=== PATIENT | male | born 1940 | race Caucasian/White ===

== ENCOUNTER 2016-09-02 05:37 | Outpatient (CLI) | payer MEDICARE, BC ==
[~2016-09-02] VITALS: Ht 175.3 cm; Wt 81.8 kg
[~2016-09-02 05:37] MED LIST: AMBIEN10 MG; ASPIRIN EC81 MG PO; ASPIRIN325 MG PO; AVODART0.5 MG PO; AZOR 5-40MG; BACTRIM DS TABL1 TAB PO; BYSTOLIC5 MG PO; CORDARONE200 MG PO; FELDENE20 MG PO; FISH OIL 1,0001 CA1; FISH OIL 1,2001 CA1 PO; FLOMAX0.4 MG PO; MULTI-DAY VITAM1 TAB PO; NORVASC5 MG PO; PROSCAR5 MG PO; VICODIN 5/500 T1 TAB
[2016-09-02 06:27] LABS: BASOPHILS 2.6 % (0.0-2.0); EOSINOPHILS 8.1 % (0-7); HEMATOCRIT 29.7 % (42.0-54.0); HEMOGLOBIN 10.1 g/dL (13.5-17.5); IMMATURE GRANULOCYTES 0.4 % (0-5); LYMPHOCYTES 23.8 % (15-50); MCH 35.4 pg (26.0-34.0); MCV 104.2 fL (80.0-100.0); MEAN PLATELET VOLUME 10.4 fL (7.4-10.4); MONOCYTES 9.9 % (2-11); NEUTROPHILS 55.2 % (40-80); RBC 2.85 10x6/uL (4.20-6.10); RDW 18.3 % (11.5-14.5); WBC 4.5 10x3/uL (4.8-10.8)
[2016-09-02 06:30] LABS: ANION GAP 11.9 mmol/L (8-16); CALCIUM 8.9 mg/dL (8.5-10.1); CREATININE - SERUM 1.2 mg/dL (0.6-1.3); PLATELET COUNT 161 10x3/uL (130-400); POTASSIUM - SERUM 3.9 mmol/L (3.5-5.1)
[2016-09-02] MEDS ORDERED: LYRICA75 MG PO (06:36)
[2016-09-02 06:38] LABS: APTT 31.7 SECONDS (22.8-39.4); INR 1.12 (0.85-1.17); PROTIME 14.2 SECONDS (11.6-15.0)
[2016-09-02 07:00] VITALS: BP 131/64; Ht 175.3 cm; Wt 81.8 kg
--- NOTE | 2016-09-02 08:44 | NUR ---
0840 V/S MONITOR ATTACHED AND V/S RECORDED ON FLOWSHEET; TOLERATED WATER
--- NOTE | 2016-09-02 10:42 | NUR ---
1083 DISCHARGE INSTRUCTIONS REVIEWED WITH PATIENT; VERBALIZED UNDERSTANDING
== END 2016-09-02 10:40 | disposition home or self-care (01) ==
LOC: D.OPS 05:37 → D.CT 08:00 → D.OPS 08:00
PROVIDERS: Specialist
DX: D64.9 Anemia, unspecified (principal)

== ENCOUNTER → 2017-03-17 13:30 | Outpatient (CLI) | payer MEDICARE, BC ==
[2016-09-02 07:00] VITALS: BMI 26.6
[~2017-03-17 13:30] MED LIST changes: +LYRICA75 MG PO
== END | disposition home or self-care (01) ==
LOC: D.RT 03-14 08:00 → D.CT 03-14 09:30 → D.RT 13:30
DX: J84.9 Interstitial pulmonary disease, unspecified (principal)

== ENCOUNTER 2017-05-05 10:54 | Outpatient (CLI) | payer MEDICARE, BC ==
--- NOTE | ~2017-05-05 | HEMODYNAMI ---
PATIENT:WASHINGTON GARLAND MEDICAL RECORD: [id number] : 38 LOCATION:[facility] ADMISSION DATE: 05/05/17 Generatedon:05/05/201714:48 Patient name: WASHINGTON GARLAND Patient #: [id number] SSN: : 1940 Date of study: 05/05/2017 Page: Of Hemodynamic Procedure Report Patient Data Patient Demographics Procedure consent was obtained First Name: WASHINGTON Gender: Male Last Name: GILL : 1940 Patient #: [id number] Age: 76 year(s) Race: Unknown Additional ID: [id number] Contact details [address]: [address] [place] [address] State: [place] City: [place] Zip code: [address] Past Medical History History of disease Date Diagnosis Comments CAD Allergies Allergen Reaction Date Comments Reported Other allergy 05/06/2016 metoprolol Other allergy 05/06/2016 Metoprolol, Sulfa Sulfa drugs 05/05/2017 Other allergy 05/05/2017 metoprolol Admission Admission Data Admission Date: 05/05/2017 Admission Time: 10:54 Procedure Procedure Types Cath Procedure Diagnostic Procedure Right Heart Right Heart Cath Miscellaneous Procedures Moderate Sedation up to 30 minutes Procedure Description Procedure Date Procedure Date: 05/05/2017 Procedure Start Time: 14:20 Procedure End Time: 14:44 Procedure Staff Name Function Feliciano Figueroa MD Performing Physician Raymundo Matthews RN Nurse Zachary Reyes RT Monitor Roula Siegel RT Monitor Sarkis Woods RT Scrub Baljinder Aden RN Tunnel Elastic Operator Lockstitch Procedure Data Cath Procedure Fluoroscopy Diagnostic fluoroscopy Total fluoroscopy Time: 5.6 time: 5.6 min min Diagnostic fluoroscopy Total fluoroscopy dose: 174 dose: 174 mGy mGy Contrast Material Contrast Material Type Amount (ml) Isovue 300 0 Entry Location Entry Primary Successful Side Size Upsize Upsize Entry Closure Marquez ccessful Closure Location (Fr) 1 (Fr) 2 (Fr) Remarks Device Remarks Femoral Right 7 Fr Manual vein Short Compression Estimated blood loss: 10 ml Diagnostic catheters Device Type Used For End Catheter Placement Lees Cloudabilityciences 7Fr Procedure [place] Thermodilution jamilah Procedure Complications No complications Procedure Medications Medication Administration Route Dosage 0.9% NaCl I.V. 100 ml/hr Oxygen NC 2 l/min Heparin Flush Bag added to field 2 bags (1000units/500ml NS) Lidocaine 2% added to field 20 Versed I.V. 0.5 mg Fentanyl I.V. 50 mcg Versed I.V. 0.5 mg Hemodynamics Rest Heart Rate: 71 (bpm) Oxygen Saturations Time Location Saturations Hgb (g/dl) O2 Content Use (%) (ml/L) 14:30 PA 74.7 14:31 RV 72.8 14:33 RA 75.1 Pressure Samples Time Site Value (mmHg) Purpose Heart Use Rate(bpm) 14:27 PA 35/11(20) Snapshot 72 14:28 PCW 15/19(14) Snapshot 75 14:31 RV 34/-1,4 Snapshot 73 14:32 RA 7/8(4) Snapshot 69 Snapshots Pre Cath Intra NCS Post Cath Vital Signs Time Heart Resp SPO2 etCO2 EQ6sbtw NIBP (mmHg) Rhythm Pain Sedation Rate (ipm) (%) (mmHg) (mmHg) Status Level (bpm) 14:07:42 72 16 100 0 0 140/82(120) NSR 0 (11) 10(A) , No pain 14:12:25 69 15 98 0 0 133/68(107) NSR 0 (11) 10(A) , No pain 14:17:09 69 15 98 0 0 137/66(102) NSR 0 (11) 10(A) , No pain 14:21:50 71 16 100 0 0 137/74(115) NSR 0 (11) 10(A) , No pain 14:26:30 80 17 98 0 0 137/87(103) NSR 0 (11) 10(A) , No pain 14:31:11 71 16 98 0 0 127/77(102) NSR 0 (11) 10(A) , No pain 14:35:56 69 14 99 0 0 125/58(106) NSR 0 (11) 10(A) , No pain 14:40:38 68 17 99 0 0 129/69(107) NSR 0 (11) 10(A) , No pain Medications Time Medication Route Dose Verified Delivered Reason Notes Effe ctiveness by by 14:09:00 0.9% NaCl I.V. 100 Raymundo Raymundo Per ml/hr Byron Matthews physician RN RN 14:09:17 Oxygen NC 2 Raymundo Raymundo Per l/min Byron Matthews physician RN RN 14:09:33 Heparin Flush added 2 Raymundo Raymundo used for Bag to bags Lorigan Byron procedure (1000units/500ml field RN RN NS) 14:09:49 Lidocaine 2% added 20ml Raymundo Raymundo for local to vial Lorigan Lorigan anesthetic field RN RN 14:16:23 Versed I.V. 0.5 Raymundo Raymundo for mg Lorigan Lorigan sedation RN RN 14:16:39 Fentanyl I.V. 50 Raymundo Raymundo for mcg Lorigan Lorigan sedation RN RN 14:20:20 Versed I.V. 0.5 Raymundo Raymundo for mg Lorigan Lorigan sedation RN boilermaker industrial boilers Log Time Note 13:45:20 Baljinder Aden RN sent for patient. Start room use. 13:56:36 Time tracking: Regular hours 13:56:44 Plan of Care:Hemodynamics will remain stable., Cardiac rhythm will remain stable., Comfort level will be maintained., Respiratory function will remain adequate., Patient/ family verbilizes understanding of procedure., Procedure tolerated without complication., Recovers from procedure without complications.. 13:57:31 Patient received from Pre/Post Procedure Room to CCL 1 Alert and oriented. Tansferred to table in Supine position. 13:57:33 Warm blankets applied, and kaylynn hugger turned on for patient comfort. 13:57:35 Correct patient and procedure confirmed by team. 13:57:37 Signed procedure consent form obtained from patient. 13:57:38 ECG and BP/O2 sat monitors applied to patient. 14:06:47 Vital chart was started 14:06:54 Baseline sample Acquired. 14:06:54 Baseline sample Acquired. 14:07:02 Rhythm: sinus rhythm 14:07:07 Full Disclosure recording started 14:07:30 H&P Date Dictated: 04/30/2017 Within 30 days and on chart., H&P Addendum completed by physician on day of procedure. (MUST COMPLETE FOR ALL OUTPATIENTS). 14:07:39 Pre-procedure instructions explained to patient. 14:07:41 Pre-op teaching completed and patient verbalized understanding. 14:07:50 Family in patients room. 14:07:53 Patient NPO since Midnight. 14:08:27 Patient allergic to Sulfa drugs 14:09:00 0.9% NaCl 100 ml/hr I.V. was administered by Raymundo Matthews RN; Per physician; 14:09:17 Oxygen 2 l/min NC was administered by Raymundo Matthews RN; Per physician; 14:09:21 Patient allergic to Other allergymetoprolol 14:09:25 Is the patient allergic to Iodine/contrast media? No. 14:09:28 Is patient on blood thinner?No 14:09:32 Patient diabetic? No. 14:09:33 Heparin Flush Bag (1000units/500ml NS) 2 bags added to field was administered by Raymundo Matthews RN; used for procedure; 14:09:38 Snore? Yes 14:09:40 Sleep apnea? No 14:09:41 Deviated septum? No 14:09:43 Opens mouth fully? Yes 14:09:44 Sticks out tongue? Yes 14:09:49 Lidocaine 2% 20ml vial added to field was administered by Raymundo Matthews RN; for local anesthetic; 14:10:00 Dentures? Yes in tight 14:10:10 Pre procedure: right dorsailis pedis pulse 1+ Palpable, but thready & weak; easily obliterated 14:12:04 Patient pain scale 0/10 ?. 14:12:26 IV patent on arrival in left forearm with 0.9% NaCl at [facility]. 14:12:45 Right groin area was prepped with chlora-prep and draped in sterile fashion 14:12:55 Alarms reviewed by R. N. 14:12:56 Sharps counted by scrub and verified by R.N. 14:13:19 Previous problem with sedation/anesthesia? No ? 14:13:21 Airway obstruction? No ? 14:13:28 Lab results completed and on chart. 14:13:31 --------ALL STOP TIME OUT------ 14:13:31 Final Timeout: patient, procedure, and site verified with staff and physician. All members of the team are in agreement. 14:13:41 Right groin site verified by team. 14:13:44 Physical assessment completed. ASA score P 2 - A patient with mild systemic disease as per Feliciano Figueroa MD. 14:13:47 Sedation plan: IV Moderate Sedation Versed, Fentanyl 14:16:10 Zero performed for pressure channel P1 14:16:15 Zero performed for pressure channel P1 14:16:23 Versed 0.5 mg I.V. was administered by Raymundo Matthews RN; for sedation; 14:16:39 Fentanyl 50 mcg I.V. was administered by Raymundo Matthews RN; for sedation; 14:16:46 Tegaderm 4 x 4 opened to sterile field. 14:16:47 Acist Hand Control opened to sterile field. 14:16:47 Acist Manifold opened to sterile field. 14:16:49 Acist Syringe opened to sterile field. 14:16:50 Bag Decanter opened to sterile field. 14:16:51 Medline Cath Pack opened to sterile field. 14:17:16 Terumo 7Fr [place]lin Sheath opened to sterile field. 14:20:04 Procedure started. 14:20:16 Local anesthetic to right femoral vein with Lidocaine 2% by Feliciano Figueroa MD.INITIAL ACCESS ONLY 14:20:20 Versed 0.5 mg I.V. was administered by Raymundo Matthews RN; for sedation; 14:22:36 A 7 Fr Short sheath was inserted into the Right Femoral vein 14:22:43 A C7 Group 7Fr [place] Thermodilution jamilah was advanced over the wire and used for Procedure. 14:25:00 St Ramón 150cm J .025 wire opened to sterile field. 14:25:20 WIRE USED TO ADVANCE SWAN 14:30:24 PA saturation: 74.7% 14:31:42 RV saturation: 72.8% 14:33:16 RA saturation: 75.1% 14:40:24 Catheter removed. 14:40:48 Sheath removed intact; hemostasis achieved with Manual Compression to the Right Femoral vein. 14:40:52 Procedure ended.(Physican Out) 14:41:09 Fluoroscopy time 05.60 minutes. 14:41:19 Fluoroscopy dose: 174 mGy 14:41:19 Flurop Dose total: 174 14:41:26 Contrast amount:Isovue 300 0ml. 14:41:28 Sharps counted by scrub and verified by R.N. 14:41:30 Insertion/operative site no bleeding no hematoma. 14:41:42 Post-op/insertion site Right Femoral vein dressed using a 4 x 4 and Tegaderm. 14:41:52 Post Procedure Pulses reassessed and unchanged 14:42:04 Post-procedure physical assessment completed. ASA score P 2 - A patient with mild systemic disease as per Feliciano Figueroa MD. 14:42:10 Post procedure rhythm: unchanged. 14:42:14 Estimated blood loss: 10 ml 14:42:17 Post procedure instruction explained to patient.Patient verbalizes understanding. 14:42:20 Patient needs reinforcement of post procedure teaching. 14:42:51 Procedure type changed to Cath procedure, Diagnostic procedure, Right Heart, Right Heart Cath, Miscellaneous Procedures, Moderate Sedation up to 30 minutes 14:44:04 Procedure and supply charges have been captured, reviewed, submitted and are correct. 14:44:17 Procedure Complication : No complications 14:44:22 Vital chart was stopped 14:44:25 See physician's report for complete and final results. 14:44:33 Report given to Pre/Post Procedure Room. 14:44:37 Patient transfered to Pre/Post Procedure Room with Stretcher. 14:44:43 Procedure ended. 14:44:43 Full Disclosure recording stopped 14:45:11 End room use (Document Last) Device Usage Item Name Manufacture Quantity Catalog Hospital Part Current Minima l Lot# / Number Charge Number Stock Stock Serial# Code Tegaderm 4 x 4 3M 1 [id number] [id number] [id number] 5 Acist Hand Acist 1 50124 792421 979667 [id number] 5 Control Medical Systems Inc Acist Manifold Acist 1 75904 663881 401659 026399 5 Medical Systems Inc Acist Syringe Acist 1 55683 242660 826599 788622 20 Medical Systems Inc Bag Decanter Microtek 1 2002S 552569 50106 818900 5 Medical Inc. Medline Cath Cardinal 1 [id number] 121554 90923 138918 5 POSLavu Health Terumo 7Fr Terumo 1 [id number] 602262 852981 792931 5 Sutherlin Sheath Lees Lees 1 [id number] 6253225 40903 958147 3 Lifesciences Lifesciences 7Fr [place] Thermodilution jamilah [address] Ram[address] St Ramón 1 353304 166654 659030 610611 2 J .025 wire Signature Audit Wells Stage Time Signature Unsigned Intra-Procedure 05/05/2017 Roula Siegel 2:48:19 PM RT(R) Signatures Monitor : Zachary Reyes RT Signature : Date : Time : Monitor : Roula Siegel Signature : RT Date : Time : [address] [place] [address]
[2017-05-05] MEDS ORDERED: VIAGRA25 MG PO (11:11)
[2017-05-05 11:19] VITALS: BP 157/70; BMI 26.5
[2017-05-05 11:48] LABS: EOSINOPHILS 1.2 % (0-7); HEMATOCRIT 36.7 % (42.0-54.0); HEMOGLOBIN 12.5 g/dL (13.5-17.5); IMMATURE GRANULOCYTES 0.4 % (0-5); LYMPHOCYTES 18.4 % (15-50); MCH 33.8 pg (26.0-34.0); MCHC 34.1 g/dL (31.0-37.0); MCV 99.2 fL (80.0-100.0); MONOCYTES 6.4 % (2-11); NEUTROPHILS 72.6 % (40-80); RDW 26.2 % (11.5-14.5); WBC 7.7 10x3/uL (4.8-10.8)
[2017-05-05 11:50] LABS: PLATELET COUNT 262 10x3/uL (130-400)
[2017-05-05 11:59] LABS: ANION GAP 14.4 mmol/L (8-16); CALCIUM 9.3 mg/dL (8.5-10.1); CARBON DIOXIDE 23.1 mmol/L (21.0-32.0); CREATININE - SERUM 1.3 mg/dL (0.6-1.3); POTASSIUM - SERUM 4.5 mmol/L (3.5-5.1)
--- NOTE | 2017-05-05 15:00 | NUR ---
1500 RECEIVED PT FROM CARAMEL MAKER. PT IS ALERT, DENIES ANY C/O. DRESSING TO RIGHT GROIN IS CDI, AREA SOFT AND NONTENDER. VSS. AT BEDSIDE, CALL LIGHT IN REACH.
--- NOTE | 2017-05-05 15:30 | NUR ---
1515 PT DENIES ANY C/O. VSS. RIGHT GROIN DRESSING IS CDI. AT BEDSIDE. CALL LIGHT IN REACH.
--- NOTE | 2017-05-05 15:30 | NUR ---
1530 PT HEIDI PO FLUIDS WITH NO C/O NAUSEA. DRESSING TO RIGHT GROIN IS CDI, AREA IS SOFT AND NONTENDER. PT DENIES ANY C/O.
--- NOTE | 2017-05-05 16:43 | NUR ---
1640 HOB ELEVATED 45 DEGREES, SANDWICH SERVED. PT DENIES ANY C/O CHEST DISCOMFORT OR NAUSEA. DRESSING TO RIGHT GROIN IS CDI, AREA IS SOFT AND NONTENDER. DC INSTRUCTIONS HAVE BEEN REVIEWED WITH PT AND WHO VERBALIZE UNDERSTANDING.
--- NOTE | 2017-05-05 16:59 | NUR ---
1700 PT HAS TOLERATED SANDWICH WITH NO C/O NAUSEA. DRESSING TO RIGHT GROIN IS STABLE WITH NO BLEEDING OR HEMATOMA NOTED. IV DC'D WITH CATH INTACT. PT DRESSING FOR DC TO HOME.
--- NOTE | 2017-05-05 17:11 | NUR ---
1710 ASSISTED PT TO THE BATHROOM AND PT VOIDED QS. RIGHT GROIN REMAINS STABLE WITH NO BLEEDING OR HEMATOMA NOTED. PT ESCORTED TO PRIVATE AUTO VIA WC WTIH DRIVING HIM HOME.
== END 2017-05-05 17:10 | disposition home or self-care (01) ==
LOC: D.CATH 10:54
PROVIDERS: Internal Medicine Cardiovascular Disease
DX: I25.10 Atherosclerotic heart disease of native coronary artery without angina pectoris (principal); I35.0 Nonrheumatic aortic (valve) stenosis; Z87.891 Personal history of nicotine dependence; I10 Essential (primary) hypertension; G47.33 Obstructive sleep apnea (adult) (pediatric); Z01.812 Encounter for preprocedural laboratory examination

== ENCOUNTER 2019-05-03 16:25 | Inpatient (IN) | payer MEDICARE, BC ==
[~2019-05-03] VITALS: Ht 172.7 cm; Wt 80.9 kg
[2019-05-03 16:00] VITALS: BP 130/68
[~2019-05-03 16:25] MED LIST changes: -AMBIEN10 MG; +AMBIEN10 MG PO; +VIAGRA25 MG PO
[2019-05-03] MEDS ORDERED: HYDROCODON-ACE1 EA10 PO (16:47)
[2019-05-03 16:51] VITALS: BP 130/68; Ht 172.7 cm; Wt 80.9 kg
[2019-05-03 17:40] LABS: BASOPHILS 0.6 % (0-2); EOSINOPHILS 0.8 % (0-7); HEMATOCRIT 32.1 % (42.0-54.0); HEMOGLOBIN 10.6 g/dL (13.5-17.5); IMMATURE GRANULOCYTES 0.6 % (0-5); LYMPHOCYTES 8.9 % (15-50); MCH 34.6 pg (26.0-34.0); MCV 104.9 fL (80.0-100.0); MONOCYTES 8.5 % (2-11); NEUTROPHILS 80.6 % (40-80); RBC 3.06 10x6/uL (4.20-6.10); RDW 26.4 % (11.5-14.5); WBC 10.4 10x3/uL (4.8-10.8)
[2019-05-03 18:03] LABS: PLATELET COUNT 180 10x3/uL (130-400)
[2019-05-03 18:06] LABS: ALBUMIN 3.8 g/dL (3.4-5.0); ALKALINE PHOSPHATASE 47 U/L (46-116); ALT (SGPT) 66 U/L (10-68); BILIRUBIN - TOTAL 2.88 mg/dL (0.2-1.3); CALC OSMOLALITY 289 mosm/kg (275-300); CALCIUM 8.7 mg/dL (8.5-10.1); CARBON DIOXIDE 24.1 mmol/L (21.0-32.0); CHLORIDE - SERUM 104 mmol/L (98-107); CREATININE - SERUM 1.4 mg/dL (0.6-1.3); GLUCOSE 109 mg/dL (74-106); POTASSIUM - SERUM 4.2 mmol/L (3.5-5.1); PROTEIN - SERUM 6.9 g/dL (6.4-8.2); SODIUM 140 mmol/L (136-145); UREA NITROGEN 40 mg/dL (7-18); eGFR NON AFRICAN AMERICAN 52 mL/min (90-120)
[2019-05-03 18:20] LABS: CKMB 0.8 U/L (0.0-3.6); CREATINE KINASE 18 UL (21-232); PRO BNP 384 pg/mL (0-450); TROPONIN-I < 0.017 ng/mL (0.000-0.060)
--- NOTE | 2019-05-03 19:40 | NUR ---
PT SITTING UP IN BED ALERT AND ORIENTED X4. NO S/S OF DISTRESS. BED LOW CALL LIGHT WITHIN REACH. WILL CONTINUE TO MONITOR.
[2019-05-03 20:00] VITALS: BP 118/59
[2019-05-04] VITALS: BP 127/72
--- NOTE | 2019-05-04 04:00 | NUR ---
I have reviewed this patient and I concur with the Shift Assessment completed by the Licensed Practical Nurse today this shift.
[2019-05-04 04:34] VITALS: BP 111/67
[2019-05-04 06:24] LABS: APTT 38.8 SECONDS (22.8-39.4); INR 1.27 (0.85-1.17); PROTIME 15.4 SECONDS (11.6-15.0)
[2019-05-04 06:43] LABS: ANION GAP 11.3 mmol/L (8-16); CALCIUM 8.2 mg/dL (8.5-10.1); CREATININE - SERUM 1.4 mg/dL (0.6-1.3); MAGNESIUM - SERUM 1.9 mg/dL (1.8-2.4); PHOSPHOROUS 3.7 mg/dL (2.5-4.9); POTASSIUM - SERUM 4.3 mmol/L (3.5-5.1)
[2019-05-04 06:44] LABS: BASOPHILS 0.4 % (0-2); HEMATOCRIT 26.2 % (42.0-54.0); HEMOGLOBIN 8.7 g/dL (13.5-17.5); IMMATURE GRANULOCYTES 0.9 % (0-5); LYMPHOCYTES 18.6 % (15-50); MCH 34.8 pg (26.0-34.0); MCHC 33.2 g/dL (31.0-37.0); MCV 104.8 fL (80.0-100.0); MONOCYTES 10.5 % (2-11); NEUTROPHILS 66.6 % (40-80); RDW 26.2 % (11.5-14.5)
[2019-05-04 06:45] LABS: PLATELET COUNT 116 10x3/uL (130-400); WBC 4.7 10x3/uL (4.8-10.8)
[2019-05-04 08:00] VITALS: BP 115/64
[2019-05-04 12:00] VITALS: BP 104/54
[2019-05-04 13:06] LABS: % SATURATION 52 % (15-55); IRON 90 ug/dl (35-150); TOTAL IRON BIND CAPACITY 170 ug/dl (260-445); UNSAT IRON BIND CAPACITY 80 ug/dl (150-375)
--- NOTE | 2019-05-04 15:40 | NUR ---
URINE SPECIMEN COLLECTED AND TAKEN TO LAB FOR UA. WILL MONITOR.
[2019-05-04 16:07] VITALS: BP 124/82
[2019-05-04] MEDS ORDERED: LASIX40 MG PO (16:32)
--- NOTE | 2019-05-04 16:37 | NUR ---
OK TO DC PER CARDIOLOGY AND ONCOLOGY.
[2019-05-04 16:40] LABS: APPEARANCE CLEAR (CLEAR); BILIRUBIN NEGATIVE (NEGATIVE); COLOR YELLOW (YELLOW); GLUCOSE NEGATIVE (NEGATIVE); KETONE NEGATIVE (NEGATIVE); NITRITE NEGATIVE (NEGATIVE); PROTEIN NEGATIVE (NEGATIVE); UROBILINOGEN NORMAL (NORMAL)
--- NOTE | 2019-05-04 17:07 | NUR ---
PER HARIKA BLOOM RN PRIMARY NURSE, SHE STATES THAT PATIENT HAS HAD HIS FLU SHOT.
--- NOTE | 2019-05-04 17:29 | NUR ---
IV AND TELEMETRY DCD. DC PLANS GIVEN. UNDERSTANDING VOICED. ESCORTED TO CAR BY W/C.
--- NOTE | 2019-05-05 08:17 | MORECARE ---
CASE MANAGEMENT DISCHARGE SUMMARY PATIENT: WASHINGTON GARLAND UNIT: [id number] ADM DATE: 05/04/19 AGE: 78 : 39 SEX: M ROOM/BED: D.2128 AUTHOR: VA WONG PHYSICIAN: REFERRING PHYSICIAN: SOLIS LUNSFORD MD DATE OF SERVICE: 05/05/19 Discharge Plan Patient Name: WASHINGTON GARLAND Facility: [facility]:[place] : 1940 Planned Disposition: Home Anticipated Discharge Date: 05/04/19 Discharge Date: 05/04/2019 Expected LOS: 1 Initial Reviewer: [email or web address] Initial Review Date: 05/05/2019 Generated: 05/05/19 9:17 am Patient Name: WASHINGTON GARLAND Page [id number] at 0817 All edits/amendments must be made on the electronic document DICTATION DATE: 05/05/19816 BPM DEVELOPER: LAXMI 05/05/19816 RPT#: [id number] DC DATE:05/04/19 STATUS: DIS IN [facility] [address] [place] [place] [address] END OF REPORT
--- NOTE | 2019-05-06 13:56 | EC ---
PATIENT:WASHINGTON GARLAND DATE OF SERVICE: 05/04/19 SEX: M MEDICAL RECORD: [id number] DATE OF : [birth year] LOCATION:D. D.212 AGE OF PATIENT: 78 ADMISSION DATE: 05/04/19 REFERRING PHYSICIAN: INTERPRETING PHYSICIAN: NOMI LUNSFORD MD ECHOCARDIOGRAM REPORT ECHO CHARGES 4 ECHO COMPLETE Date: 05/04/19 CLINICAL DIAGNOSIS: BLE EDEMA, SOB,PALPIATIONS, HX CAD, AVR, MV REPAIR ECHOCARDIOGRAPHIC MEASUREMENTS (adult normal given) AC root (d.<3.7cm) 3.5 cm LV Septum d (<1.2 cm> 1.4 cm Valve Excursion 1.3 cm LV Septum (systole) 1.7 cm Left Atria (s.<4.0cm> 4.4 cm LVPW d(<1.2cm) 1.8 cm RV (d.<2.3cm) 3.8 cm LVPW (sytole) 1.9 cm LV diastole(<5.6CM) 6.2 cm MV E-F(>70mm/sec) cm LV systole 5.1 cm LVOT Diameter 2.6 cm MV exc.(>10mm) 2.1 cm Est.ejection fraction (50-75%) % DOPPLER: LVIT cm/sec A 114 cm/sec E 107 cm/sec LA cm/sec RVSP 13 mmHg LVOT 136 cm/sec AOP1/2T m/s Asc. Ao 210 cm/sec RVOT 81 cm/sec RA cm/sec PA 140 cm/sec AV Gradient Peak 17.70mmHg AV Mean 9.69 mmHg AV Area 2.6 cm MV Gradient Peak 7.93 mmHg MV Mean 3.88 mmHg MV Area cm COMMENTS: Boiling House Oiler: 2 WALT [employer] Supply Chain Vice President: 2 Dr. Figueroa TAPE# PACS Pericardial Effusion N DATE OF SERVICE: Adequate 2D, color flow imaging, spectral Doppler, and M-mode. LVH is present. No internal dimension is dilated at 6.2 cm. LV appears to be mildly globally hypo with EF lower limits of normal, mildly reduced at 45% to 50%. Tissue prosthetic aortic valve is noted with acceptable Doppler velocity and no significant AI. Left atrium dilated at 4.8 cm. Mitral valve repair is noted with acceptable Doppler velocity and no more than mild MR. Right-sided chambers are grossly normal. Mild TR. ECHOCARDIOGRAM REPORT [id number] WASHINGTON GARLAND TRANSINT:[id number] Voice Confirmation ID: [id number] DOCUMENT ID: [id number] NOMI LUNSFORD MD at 1356 CC: [id number] DICTATION DATE: 05/04/19 1608 DATA ENTRY: 05/05/19 0102 DIS IN 05/04/19 [place] [id number] [place] [id number]
== END 2019-05-04 17:30 | disposition home or self-care (01) | DRG 293 ==
LOC: D.M2 16:25 → OBSVTIME 16:25 → D.M2 05-04 15:08
PROVIDERS: Family Medicine; ADMIT Emergency Medicine; ATTEND Emergency Medicine
DX: I11.0 Hypertensive heart disease with heart failure (principal); I50.9 Heart failure, unspecified; D53.9 Nutritional anemia, unspecified; E80.6 Other disorders of bilirubin metabolism; I25.10 Atherosclerotic heart disease of native coronary artery without angina pectoris; J84.10 Pulmonary fibrosis, unspecified; M19.90 Unspecified osteoarthritis, unspecified site; D46.9 Myelodysplastic syndrome, unspecified; E83.119 Hemochromatosis, unspecified; R00.0 Tachycardia, unspecified; Z87.891 Personal history of nicotine dependence

== ENCOUNTER 2019-05-12 09:00 | Inpatient (IN) | payer MEDICARE, BC ==
[~2019-05-12] VITALS: Ht 172.7 cm; Wt 79.5 kg
[~2019-05-12 09:00] MED LIST changes: +HYDROCODON-ACE1 EA10 PO; +LASIX40 MG PO
[2019-05-12 09:46] VITALS: BP 98/58
[2019-05-12 10:01] LABS: ALBUMIN 3.9 g/dL (3.4-5.0); ALKALINE PHOSPHATASE 48 U/L (46-116); ALT (SGPT) 48 U/L (10-68); BILIRUBIN - TOTAL 2.87 mg/dL (0.2-1.3); CALC OSMOLALITY 295 mosm/kg (275-300); CALCIUM 8.8 mg/dL (8.5-10.1); CARBON DIOXIDE 27.3 mmol/L (21.0-32.0); CHLORIDE - SERUM 106 mmol/L (98-107); CREATININE - SERUM 1.4 mg/dL (0.6-1.3); GLUCOSE 114 mg/dL (74-106); POTASSIUM - SERUM 3.4 mmol/L (3.5-5.1); PROTEIN - SERUM 6.6 g/dL (6.4-8.2); SODIUM 147 mmol/L (136-145); UREA NITROGEN 22 mg/dL (7-18); eGFR NON AFRICAN AMERICAN 52 mL/min (90-120)
[2019-05-12 10:03] VITALS: BP 102/66
[2019-05-12 10:06] LABS: APTT 32.1 SECONDS (22.8-39.4); INR 1.1 (0.85-1.17); PROTIME 13.7 SECONDS (11.6-15.0)
[2019-05-12 10:08] LABS: HEMATOCRIT 32.9 % (42.0-54.0); HEMOGLOBIN 10.5 g/dL (13.5-17.5); MCH 33.2 pg (26.0-34.0); MCHC 31.9 g/dL (31.0-37.0); MCV 104.1 fL (80.0-100.0); RBC 3.16 10x6/uL (4.20-6.10); RDW 25.1 % (11.5-14.5); WBC 5.6 10x3/uL (4.8-10.8)
[2019-05-12 10:10] LABS: PLATELET COUNT 180 10x3/uL (130-400)
[2019-05-12 10:11] LABS: APPEARANCE CLEAR (CLEAR); BILIRUBIN NEGATIVE (NEGATIVE); COLOR YELLOW (YELLOW); GLUCOSE NEGATIVE (NEGATIVE); KETONE NEGATIVE (NEGATIVE); NITRITE NEGATIVE (NEGATIVE); PROTEIN NEGATIVE (NEGATIVE); UDS - AMPHET NEGATIVE QUAL (NEGATIVE); UDS - BARB NEGATIVE QUAL (NEGATIVE); UDS - BENZO NEGATIVE QUAL (NEGATIVE); UDS - COCAINE NEGATIVE QUAL (NEGATIVE); UDS - OPIATE POSITIVE QUAL (NEGATIVE); UDS - PCP NEGATIVE QUAL (NEGATIVE); UDS - THC NEGATIVE QUAL (NEGATIVE); UROBILINOGEN NORMAL (NORMAL)
[2019-05-12 10:13] LABS: CKMB 0.9 U/L (0.0-3.6); CREATINE KINASE 25 UL (21-232); MAGNESIUM - SERUM 1.7 mg/dL (1.8-2.4); THYROID STIMULATING HORMONE 1.94 uIU/mL (0.36-3.74); TROPONIN-I 0.027 ng/mL (0.000-0.060)
[2019-05-12 10:40] LABS: ANISOCYTOSIS 1+; LYMPHOCYTES 5 % (15-50); MONOCYTES 4 % (2-11); NEUTROPHILS 88 % (40-80); PLATELET ESTIMATE NORMAL
[2019-05-12 10:41] LABS: POIKILOCYTOSIS 1+
[2019-05-12 11:03] VITALS: BP 130/69
--- NOTE | 2019-05-12 11:40 | NUR ---
REPORT TO FADI VALENTINO PT TO BE ADMITTED TO ROOM 2233
--- NOTE | 2019-05-12 12:30 | NUR ---
REC'D TO ROOM 2235 AWAKE WITH NOTED CONFUSION TO SELF,PLACE, TIME AND SITUTATION. HAS O2 IN USE VIA N/C @ 2 L/M. NO C/O PAIN OR DISCOMFORT NOTED OR VOICED. IV NOTED TO RIGHT AC WITH NS @ 125 INFUSING. ASSESSMENT COMPLETED. FAMILY AND C/L IN REACH AT BEDSIDE.
[2019-05-12 14:38] LABS: CHOL - HDL RATIO 4.8 ratio (2.3-4.9)
[2019-05-12 14:51] VITALS: BP 132/59; Ht 172.7 cm; Wt 79.5 kg
--- NOTE | 2019-05-12 15:24 | NUR ---
IV RESITED TO RIGHT FOREARM AT THIS TIME WITH 20G WITH NS @ 125. TOLERATED WELL. C/L IN REACH AT BEDSIDE.
[2019-05-12 17:28] LABS: % SATURATION 44 % (15-55); IRON 97 ug/dl (35-150); TOTAL IRON BIND CAPACITY 220 ug/dl (260-445); UNSAT IRON BIND CAPACITY 123 ug/dl (150-375)
--- NOTE | 2019-05-12 19:35 | NUR ---
LYING IN BED. IRRITABLE. CONFUSED. EXPRESSIVE APHASIA NOTED. ORIENTED TO SELF AND PLACE. CONFUSED TO TIME AND SITUATION. AT BEDSIDE. RESP NONLABORED. O2 @ 2LNC. TELEMETRY SHOWS SR WITH RATE OF 75. WILTON. NS @ 75 MLHR INFUSING IN LT FOREARM WITHOUT DIFF. BRUISES NOTED TO BUE. MOHAN ALARM IN USE FOR PT SAFETY. PT IS WEAK. AMB WITH ASSIST TO BSC NEEDED. GAIT IS UNSTEADY. SR ELEVATED X2. CL IN REACH.
[2019-05-12 20:34] VITALS: BP 105/72
--- NOTE | 2019-05-13 01:15 | NUR ---
HAS BEEN UP TO BSC SEVERAL TIMES. CONFUSED. PULLED OUT IV. LINENS CHANGED AT THIS TIME. MOHAN ALARM IN USE. CL IN REACH. REFUSING TO HAVE IV RESTARTED AT THIS TIME. EASILY AGITATED.
[2019-05-13 05:12] VITALS: BP 124/74
--- NOTE | 2019-05-13 05:30 | NUR ---
ATTEMPTED TO RESTART IV X3 ATTEMPTS WITHOUT SUCCESS PER ANDREA, CABLE FORMER AND PT REFUSED ANY MORE ATTEMPTS.
[2019-05-13 06:03] LABS: BASOPHILS 0.8 % (0-2); EOSINOPHILS 1.1 % (0-7); HEMATOCRIT 28.2 % (42.0-54.0); HEMOGLOBIN 8.9 g/dL (13.5-17.5); IMMATURE GRANULOCYTES 0.8 % (0-5); LYMPHOCYTES 15.7 % (15-50); MCH 32.7 pg (26.0-34.0); MCHC 31.6 g/dL (31.0-37.0); MCV 103.7 fL (80.0-100.0); MONOCYTES 7.8 % (2-11); NEUTROPHILS 73.8 % (40-80); PLATELET COUNT 165 10x3/uL (130-400); RBC 2.72 10x6/uL (4.20-6.10); RDW 25.5 % (11.5-14.5); WBC 5.2 10x3/uL (4.8-10.8)
[2019-05-13 06:29] LABS: ALBUMIN 3.3 g/dL (3.4-5.0); BILIRUBIN - TOTAL 2.01 mg/dL (0.2-1.3); CREATININE - SERUM 1.2 mg/dL (0.6-1.3); PROTEIN - SERUM 5.6 g/dL (6.4-8.2)
--- NOTE | 2019-05-13 06:55 | NUR ---
ALERT AND ORIENTED X2. AT BEDSIDE. NO C/O PAIN. NO S/S OF ACUTE DISTRESS NOTED. MOHAN ALARM ON. CAHUILLA. EXPRESSIVE APHASIA. BRUISES TO BUE. IV OUT, PATIENT REFUSED TO BE RESTUCK. ON 2L O2, NC. ON TELEMETRY SR 96 WITH OCCASIONAL PVCS. PT DENIES ANY NEEDS AT THIS TIME. CALL LIGHT IN REACH. WILL CONTINUE TO MONITOR.
[2019-05-13 08:34] VITALS: BP 135/62
[2019-05-13 13:09] VITALS: BP 130/74
--- NOTE | 2019-05-13 15:27 | MORECARE ---
CASE MANAGEMENT DISCHARGE SUMMARY PATIENT: WASHINGTON GARLAND UNIT: [id number] ADM DATE: 05/12/19 AGE: 78 : 39 SEX: M ROOM/BED: D.2235 AUTHOR: VA WONG PHYSICIAN: REFERRING PHYSICIAN: LEFTY PATEL MD DATE OF SERVICE: 05/13/19 Discharge Plan Patient Name: WASHINGTON GARLAND Facility: [facility]:[place] : 1940 Planned Disposition: Home Anticipated Discharge Date: 05/13/19 Discharge Date: Expected LOS: 1 Initial Reviewer: [email or web address] Initial Review Date: 05/13/2019 Generated: 05/13/19 4:27 pm Comments DCP- Discharge Planning Updated by [email or web address]: Silvia Bravo on 05/13/19 2:[address] Patient Name: WASHINGTON GARLAND Admission Status: ER Accout number: [id number] Admission Date: 05-12-2019 : 1940 Admission Diagnosis: Attending: LEFTY PATEL Current LOS: 1 Anticipated DC Date: 05-13-2019 Planned Disposition: Home Primary Insurance: MEDICARE A & B Discharge Planning Comments: CM met with patient to complete initial dc planning assessment. CM educated patient on the CM role and verbal consent given by patient to complete assessment. Patient lives at home with his spouse. At discharge patient plans to return and feels this is a safe discharge. CM discussed availability of home health, rehab services, and medical equipment. Patient denied known discharge needs at this time. States he has oxygen and supplies come from [facility]. CM will continue to follow and will assist as needed with dc plans/needs. Head Cook: Silvia Bravo DCPIA - Discharge Planning Initial Assessment Updated by [email or web address]: Silvia Bravo on 05/13/19 3:23 pm * Is the patient Alert and Oriented? Yes * How many steps to enter\exit or inside your home? 2/0 * PCP Aung * Pharmacy [facility] * Preadmission Environment Home with Family * ADLs Independent * Equipment Oxygen * List name and contact numbers for known caregivers / representatives who currently or will assist patient after discharge: Ariana Garland - spouse - [phone] * Verbal permission to speak to the caregivers and representatives has been obtained from the patient. Yes * Community resources currently utilized None * Additional services required to return to the preadmission environment? No * Can the patient safely return to the preadmission environment? Yes * Has this patient been hospitalized within the prior 30 days at any hospital? No Patient Name: WASHINGTON GARLAND Page 43566 at 1527 All edits/amendments must be made on the electronic document DICTATION DATE: 05/13/191525 MACHINE SHOP INSTRUCTOR: LAXMI 05/13/191525 RPT#: [id number] DC DATE: STATUS: ADM IN [facility] [address] [place] [address] END OF REPORT
--- NOTE | 2019-05-13 15:43 | NUR ---
DISCHARGED PATIENT HOME WITH VIA WHEELCHAIR ACCOMPANIED BY HOSPITAL VOLUNTEER. DISCONTINUED IV, CATHETER TIP INTACT. WENT OVER DISCHARGE INSTRUCTIONS WITH PATIENT, PATIENT VERBALIZED UNDERSTANDING. DENIES ANYTHING FURTHER.
--- NOTE | 2019-05-14 16:40 | MORECARE ---
CASE MANAGEMENT DISCHARGE SUMMARY PATIENT: WASHINGTON GARLAND UNIT: [id number] ADM DATE: 05/12/19 AGE: 78 : 39 SEX: M ROOM/BED: D.2235 AUTHOR: VA WONG PHYSICIAN: REFERRING PHYSICIAN: LEFTY PATEL MD DATE OF SERVICE: 05/14/19 Discharge Plan Patient Name: WASHINGTON GARLAND Facility: [facility]:[place] : 1940 Planned Disposition: Home Anticipated Discharge Date: 05/13/19 Discharge Date: 05/13/2019 Expected LOS: 1 Initial Reviewer: [email or web address] Initial Review Date: 05/13/2019 Generated: 05/14/19 5:39 pm Comments DCP- Discharge Planning Updated by [email or web address]: Silvia Bravo on 05/13/19 2:[address] Patient Name: WASHINGTON GARLAND Admission Status: ER Accout number: [id number] Admission Date: 05-12-2019 : 1940 Admission Diagnosis: Attending: LEFTY PATEL Current LOS: 1 Anticipated DC Date: 05-13-2019 Planned Disposition: Home Primary Insurance: MEDICARE A & B Discharge Planning Comments: CM met with patient to complete initial dc planning assessment. CM educated patient on the CM role and verbal consent given by patient to complete assessment. Patient lives at home with his spouse. At discharge patient plans to return and feels this is a safe discharge. CM discussed availability of home health, rehab services, and medical equipment. Patient denied known discharge needs at this time. States he has oxygen and supplies come from [facility]. CM will continue to follow and will assist as needed with dc plans/needs. Public Relations Representative: Silvia Bravo DCPIA - Discharge Planning Initial Assessment Updated by [email or web address]: Silvia Bravo on 05/13/19 3:23 pm * Is the patient Alert and Oriented? Yes * How many steps to enter\exit or inside your home? 2/0 * PCP Aung * Pharmacy [facility] * Preadmission Environment Home with Family * ADLs Independent * Equipment Oxygen * List name and contact numbers for known caregivers / representatives who currently or will assist patient after discharge: Ariana Garland - spouse - [phone] * Verbal permission to speak to the caregivers and representatives has been obtained from the patient. Yes * Community resources currently utilized None * Additional services required to return to the preadmission environment? No * Can the patient safely return to the preadmission environment? Yes * Has this patient been hospitalized within the prior 30 days at any hospital? No Last DP export: 05/13/19 2:27 Patient Name: WASHINGTON GARLAND Page 30050 at 1640 All edits/amendments must be made on the electronic document DICTATION DATE: 05/14/191638 DYNAMITE RECLAIMER: LAXMI 05/14/19 163 RPT#: [id number] DC DATE:05/13/19 STATUS: DIS IN [facility] [address] [place] [address] END OF REPORT
== END 2019-05-13 15:44 | disposition home or self-care (01) | DRG 92 ==
LOC: D.ER 09:00 → D.MS 11:25
PROVIDERS: Family Medicine; ADMIT Internal Medicine Nephrology; ATTEND Internal Medicine Nephrology
DX: G92 Toxic encephalopathy (principal); G45.9 Transient cerebral ischemic attack, unspecified; E87.0 Hyperosmolality and hypernatremia; I50.20 Unspecified systolic (congestive) heart failure; E83.42 Hypomagnesemia; E87.6 Hypokalemia; D64.9 Anemia, unspecified; I25.10 Atherosclerotic heart disease of native coronary artery without angina pectoris; J84.10 Pulmonary fibrosis, unspecified; Z99.81 Dependence on supplemental oxygen; N18.9 Chronic kidney disease, unspecified; E83.119 Hemochromatosis, unspecified; M19.90 Unspecified osteoarthritis, unspecified site

== ENCOUNTER 2020-03-19 07:15 | Emergency (ER) | payer MEDICARE, BC ==
[~2020-03-19] VITALS: Ht 172.7 cm; Wt 81.8 kg
[2020-03-19 07:27] VITALS: Ht 172.7 cm; Wt 81.8 kg
[2020-03-19 07:50] LABS: BASOPHILS 0.3 % (0-2); EOSINOPHILS 0.9 % (0-7); HEMATOCRIT 30.2 % (42.0-54.0); IMMATURE GRANULOCYTES 0.4 % (0-5); LYMPHOCYTES 13.5 % (15-50); MCH 30.7 pg (26.0-34.0); MCHC 33.1 g/dL (31.0-37.0); MCV 92.6 fL (80.0-100.0); MEAN PLATELET VOLUME 10.9 fL (7.4-10.4); NEUTROPHILS 79.9 % (40-80); RBC 3.26 10x6/uL (4.20-6.10); RDW 20.6 % (11.5-14.5); WBC 11.3 10x3/uL (4.8-10.8)
[2020-03-19 07:52] LABS: PLATELET COUNT 199 10x3/uL (130-400)
[2020-03-19 07:56] LABS: ANION GAP 15.4 mmol/L (8-16); CARBON DIOXIDE 25.2 mmol/L (21.0-32.0); POTASSIUM - SERUM 3.6 mmol/L (3.5-5.1)
[2020-03-19 08:01] LABS: APTT 29.7 SECONDS (22.8-39.4); INR 1.08 (0.85-1.17)
[2020-03-19 08:02] LABS: ALBUMIN 3.7 g/dL (3.4-5.0); BILIRUBIN - TOTAL 1.08 mg/dL (0.2-1.3)
[2020-03-19 09:46] LABS: BACTERIA FEW /hpf (NEGATIVE); BILIRUBIN NEGATIVE (NEGATIVE); EPITHELIAL CELLS OCC /hpf (0-5); GLUCOSE NEGATIVE (NEGATIVE); KETONE NEGATIVE (NEGATIVE); NITRITE NEGATIVE (NEGATIVE); RED CELLS - URINE 0-5 /hpf (0-5); UROBILINOGEN NORMAL (NORMAL); WHITE CELLS - URINE NSEEN /hpf (NEGATIVE)
[2020-03-19] MEDS ORDERED: HYDROCODON-ACE1 EAC7 PO ×2 (10:04→10:05)
[2020-03-19 10:24] VITALS: BP 103/44
== END 2020-03-19 10:26 | disposition home or self-care (01) ==
LOC: D.ER 07:15
PROVIDERS: Family Medicine
DX: S70.02XA Contusion of left hip, initial encounter (principal); S72.112A Displaced fracture of greater trochanter of left femur, initial encounter for closed fracture; M25.552 Pain in left hip; M79.10 Myalgia, unspecified site; T14.8XXA Other injury of unspecified body region, initial encounter; I10 Essential (primary) hypertension; Z99.81 Dependence on supplemental oxygen; W01.0XXA Fall on same level from slipping, tripping and stumbling without subsequent striking against object, initial encounter; Y93.9 Activity, unspecified; Y92.9 Unspecified place or not applicable

== ENCOUNTER 2021-01-23 11:46 | Outpatient (CLI) | payer MEDICARE, BC ==
[~2021-01-23] VITALS: Ht 172.7 cm; Wt 55.5 kg
[~2021-01-23 11:46] MED LIST changes: +HYDROCODON-ACE1 EAC7 PO
[2021-01-23 14:32] VITALS: BP 105/49; Ht 172.7 cm; Wt 55.5 kg
== END 2021-01-23 18:08 | disposition home or self-care (01) ==
LOC: D.OPS 11:46
PROVIDERS: ATTEND Emergency Medicine
DX: D64.9 Anemia, unspecified (principal)